=== PATIENT | female | born 1940 | race Caucasian/White ===

== ENCOUNTER 2016-11-28 00:44 | Inpatient (IN) | payer MEDICARE, BC ==
[2016-11-28] MEDS: DILTIAZEM HCL/D5W 125 ML IV PRN ×3 (00:58→23:28)
[2016-11-28 01:48] LABS: ABSOLUTE LYMPHOCYTES (AUTO) 0.7 10^3/uL (0.5-4.7); ABSOLUTE MONOCYTES (AUTO) 0.6 10^3/uL (0.1-1.4); ABSOLUTE NEUT (AUTO) 9.1 10^3/uL (1.7-8.2); BASOPHILS % (AUTO) 0.1 % (0-2); EOSINOPHILS % (AUTO) 0.1 % (0-6); HEMATOCRIT 38.8 % (36.0-47.0); HEMOGLOBIN 12.6 g/dL (12.0-15.5); LYMPHOCYTES % (AUTO) 6.3 % (13-45); MEAN CORPUSCULAR HEMOGLOBIN 27.1 pg (27.0-33.4); MEAN CORPUSCULAR HGB CONC 32.4 g/dL (32.0-36.0); MEAN CORPUSCULAR VOLUME 84 fl (80-97); MONOCYTES % (AUTO) 5.9 % (3-13); RED BLOOD COUNT 4.64 10^6/uL (3.72-5.28); RED CELL DISTRIBUTION WIDTH 17.6 % (11.5-14.0); SEGMENTED NEUTROPHILS % (AUTO) 87.6 % (42-78); WHITE BLOOD COUNT 10.4 10^3/uL (4.0-10.5)
--- NOTE | 2016-11-28 02:00 | ER Document Report ---
ED Cardiac - General Chief Complaint: Chest Pain Stated Complaint: CHEST PAIN Time seen by provider: 02:00 Mode of Arrival: Stretcher Information source: Patient - HPI Patient complains to provider of: Palpitations, Shortness of breath Was the onset of pain: Sudden Is the pain a: New problem Quality of pain: None Associated symptoms: Diaphoresis Exacerbated by: Denies Relieved by: Nothing Similar symptoms previously: No Recently seen / treated by doctor: Yes Notes: Patient is a 76-year-old female presenting to the emergency room via EMS for complaints of rapid heart rate with shortness of breath and diaphoresis, this started all of a sudden, she denies any history of an irregular heartbeat previously, she does report that she was recently admitted at [facility] for upper respiratory infection, she has a history of COPD, EMS reports that her heart rate was in the 160s upon arrival and irregular, consistent with atrial fibrillation, they administered two 10 mg doses of Cardizem and started a Cardizem drip prior to arrival in this emergency room - Related Data Home Medications: Current Home Medications Albuterol Sulfate [Ventolin Hfa] 1 - 2 puff IH Q4 PRN 11/28/16 [History] Amlodipine Besylate 5 mg PO DAILY 11/28/16 [History] Aspirin [Aspirin 81 mg Chewable Tablet] 81 mg PO DAILY 11/28/16 [History] Budesonide/Formoterol Fumarate [Symbicort Hfa 160-4.5 Mcg Inhaler 6 gm] 2 puff IH Q12 11/28/16 [History] Furosemide 20 mg PO ASDIR 11/28/16 [History] Metoprolol Succinate [Toprol Xl] 50 mg PO DAILY 11/28/16 [History] Omeprazole 20 mg PO DAILY 11/28/16 [History] Ondansetron [Zofran Odt 4 mg Tablet] 4 mg PO Q6H PRN 11/28/16 [History] Prednisone 40 mg PO DAILY 11/28/16 [History] Sucralfate [Carafate 1 gm Tablet] 1 gm PO ACHS 11/28/16 [History] Past Medical History - General Information source: Patient - Social History Smoking Status: Former Smoker Family History: Reviewed & Not Pertinent Review of Systems - Review of Systems Constitutional: Diaphoresis EENT: No symptoms reported Cardiovascular: Palpitations, Heart racing Respiratory: See HPI Gastrointestinal: No symptoms reported Genitourinary: No symptoms reported Female Genitourinary: No symptoms reported Musculoskeletal: No symptoms reported Skin: No symptoms reported Hematologic/Lymphatic: No symptoms reported Neurological/Psychological: No symptoms reported -: Yes All other systems reviewed and negative Physical Exam - Vital signs Vitals: Temp Pulse Ox 98.1 F 98 11/28/16 00:58 11/28/16 00:58 Interpretation: Tachycardic - General General appearance: Alert, Other - Frail-appearing In distress: None - HEENT Head: Normocephalic, Atraumatic Eyes: Normal Conjunctiva: Normal Extraocular movements intact: Yes Eyelashes: Normal Pupils: PERRL Mucous membranes: Normal Neck: Normal - Respiratory Respiratory status: No respiratory distress Chest status: Nontender Breath sounds: Normal Chest palpation: Normal - Cardiovascular Rhythm: Irregularly irregular, Tachycardia Murmur: No - Abdominal Inspection: Normal Distension: No distension Bowel sounds: Normal Tenderness: Nontender Organomegaly: No organomegaly - Back Back: Normal, Nontender - Extremities General upper extremity: Normal inspection, Nontender, Normal color, Normal ROM , Normal temperature General lower extremity: Normal inspection, Nontender, Normal color, Normal ROM , Normal temperature. No: Aurora's sign - Neurological Neuro grossly intact: Yes Cognition: Normal Orientation: AAOx4 [place] Coma Scale Eye Opening: Spontaneous Carmen Coma Scale Verbal: Oriented [place] Coma Scale Motor: Obeys Commands [place] Coma Scale Total: 15 Speech: Normal Motor strength normal: LUE, RUE, LLE, RLE Sensory: Normal - Psychological Associated symptoms: Normal affect, Normal mood - Skin Skin Temperature: Warm Skin Moisture: Dry Skin Color: Normal Course - Re-evaluation Re-evalutation: 11/28/16 04:50 Patient resting comfortably, no concerns at present time, she remains in rhythm consistent with atrial fibrillation, heart rate is more controlled but occasionally increases, patient has been discussed with the hospitalist who agrees to admit for further evaluation and treatment - Vital Signs Vital signs: Temp Pulse Resp BP Pulse Ox 98.1 F 18 121/73 97 11/28/16 00:58 11/28/16 03:31 11/28/16 03:31 11/28/16 03:31 - Laboratory Result Diagrams: 11/28/16 01:32 11/28/16 01:32 Laboratory results interpreted by me: 0211/28/16 11/28/16 01:32 01:32 01:32 RDW 17.6 H Seg Neutrophils % 87.6 H Lymphocytes % 6.3 L Absolute Neutrophils 9.1 H Carbon Dioxide 32 H BUN 28 H Est GFR (Non-Af Amer) 59 L Glucose 164 H Creatine Kinase 24 L NT-Pro-B Natriuret Pep 7980 H Total Protein 5.9 L Albumin 3.0 L Urine Protein Urine Glucose (UA) 11/28/16 02:12 RDW Seg Neutrophils % Lymphocytes % Absolute Neutrophils Carbon Dioxide BUN Est GFR (Non-Af Amer) Glucose Creatine Kinase NT-Pro-B Natriuret Pep Total Protein Albumin Urine Protein 100 H Urine Glucose (UA) 50 H - Diagnostic Test Radiology reviewed: Image reviewed, Reports reviewed - EKG Interpretation by Me Rate: Tachycardia Rhythm: A.Fib - Transfer of Care Care transferred to following provider: Dr. Headley Critical Care Note - Critical Care Note Total time excluding time spent on procedures (mins): 60 Comments: Patient arrived in atrial fibrillation, requiring a Cardizem drip for rate control, and admission to the hospitalist service Discharge - Discharge Clinical Impression: New onset atrial fibrillation Condition: Fair Disposition: ADMITTED INPATIENT Admitting Provider: Hospitalist Unit Admitted: [facility]
[2016-11-28 02:12] LABS: ALANINE AMINOTRANSFERASE 35 U/L (9-52); ALKALINE PHOSPHATASE 124 U/L (38-126); ANION GAP 10 (5-19); ASPARTATE AMINO TRANSFERASE 17 U/L (14-36); BILIRUBIN,TOTAL 0.4 mg/dL (0.2-1.3); BLOOD UREA NITROGEN 28 mg/dL (7-20); CALCIUM 8.9 mg/dL (8.4-10.2); CARBON DIOXIDE 32 mmol/L (22-30); CHLORIDE 98 mmol/L (98-107); CREATINE KINASE 24 U/L (30-135); CREATININE RESULT 0.92 mg/dL (0.52-1.25); GLUCOSE 164 mg/dL (75-110); POTASSIUM 3.6 mmol/L (3.6-5.0); SODIUM 139.8 mmol/L (137-145); TOTAL PROTEIN 5.9 g/dL (6.3-8.2)
[2016-11-28 02:22] LABS: CREATINE KINASE MB 1.32 ng/mL (<4.55); TROPONIN I 0.033 ng/mL
[2016-11-28 02:28] LABS: APPEARANCE,URINE CLEAR; BILIRUBIN,URINE NEGATIVE (NEGATIVE); GLUCOSE, URINE 50 mg/dL (NEGATIVE); KETONES,URINE NEGATIVE (NEGATIVE); LEUKOCYTE ESTERASE,URINE NEGATIVE (NEGATIVE); NITRITE,URINE NEGATIVE (NEGATIVE); PROTEIN,URINE 100 mg/dL (NEGATIVE); URINE SPECIFIC GRAVITY 1.017; UROBILINOGEN,URINE NEGATIVE mg/dL (<2.0)
[2016-11-28] MEDS ORDERED: ATORVASTATIN CALCIUM 40 MG TABLET PO SCH (03:30)
[2016-11-28] MEDS ORDERED: IPRATROPIUM BROMIDE 0.02% NEB 0.5 MG/2.5 ML AMPUL NEB SCH (03:30)
[2016-11-28] MEDS: LEVALBUTEROL HCL NEB 1.25 MG/3 ML AMPUL NEB SCH ×3 (04:49→19:42)
[2016-11-28] MEDS: ENOXAPARIN SODIUM INJ 60 MG/0.6 ML DISP.SYRIN SUBCUT SCH ×2 (04:50→21:42)
[2016-11-28] MEDS ORDERED: METOPROLOL TARTRATE PF/INJ 5 MG/5 ML SDV IV PRN ×2 (05:07→06:06)
[2016-11-28] MEDS ORDERED: FLUTICASONE NASAL SPRAY 50 MCG/SPRY 120 SPRAY/16 GM ONE (05:33)
[2016-11-28] MEDS: FLUTICASONE NASAL SPRAY 50 MCG/SPRY 120 SPRAY/16 GM NASL SCH ×2 (05:51→21:44)
[2016-11-28] MEDS: LANSOPRAZOLE 30 MG TAB.RAP.DR PO SCH ×2 (06:07→18:54)
--- NOTE | 2016-11-28 07:44 | PDOC H&P ---
History of Present Illness Admission Date/PCP: 11/28/16 03:27 JAYSON SAPP Patient complains of: Palpitations and shortness of breath History of Present Illness: PRUDENCE RYAN is a 76 year old female with an unclear past medical history as she is a poor historian though states she was recently at [facility] for a heart and lung problem and found to have reduced lung function of 30%, treated with prednisone and antibiotics which she is finished. Records are requested and pending. Over the last 48 hours she's had a productive cough of frothy sputum and frontal sinus congestion with rhinorrhea and postnasal drip. Prompting her to call EMS who finds new A. fib with RVR in the 160s, and has orders for IV Cardizem initiated, she denies chest pain nausea vomiting diaphoresis, she thinks she may have had similar palpitations in the past but are short-lived. Medications recently changed included discontinuation of Coreg and initiation of Lopressor, prednisone taper an unknown antibiotic. Her labs reveal a BNP of 8000, A. fib stabilized at 120 to 130 and referred to the hospitalist for admission. Past Medical History Cardiac Medical History: Reports: Congestive Heart Failure, Hyperlipidema, Hypertension Pulmonary Medical History: Reports: Bronchitis, Chronic Obstructive Pulmonary Disease (COPD) Social History Information Source: Patient, Relative Smoking Status: Former Smoker Frequency of Alcohol Use: None Hx Recreational Drug Use: No Drugs: None - Advance Directive Resuscitation Status: Full Code Family History Family History: Hypertension Parental Family History Reviewed: Yes Children Family History Reviewed: Yes Sibling(s) Family History Reviewed.: Yes Medication/Allergy Home Medications: Albuterol Sulfate [Ventolin Hfa] 1 - 2 puff IH Q4 PRN 11/28/16 Amlodipine Besylate 5 mg PO DAILY 11/28/16 Aspirin [Aspirin 81 mg Chewable Tablet] 81 mg PO DAILY 11/28/16 Budesonide/Formoterol Fumarate [Symbicort Hfa 160-4.5 Mcg Inhaler 6 gm] 2 puff IH Q12 11/28/16 Furosemide 20 mg PO ASDIR 11/28/16 Metoprolol Succinate [Toprol Xl] 50 mg PO DAILY 11/28/16 Omeprazole 20 mg PO DAILY 11/28/16 Ondansetron [Zofran Odt 4 mg Tablet] 4 mg PO Q6H PRN 02/07/17 Prednisone 40 mg PO DAILY 11/28/16 Sucralfate [Carafate 1 gm Tablet] 1 gm PO ACHS 11/28/16 Review of Systems Constitutional: PRESENT: fatigue. ABSENT: chills, fever(s), headache(s), weight gain, weight loss Eyes: ABSENT: visual disturbances Ears: ABSENT: hearing changes Cardiovascular: PRESENT: dyspnea on exertion, palpitations. ABSENT: chest pain , edema, orthropnea Respiratory: PRESENT: cough, dyspnea, sputum, other - Patient admits to both yellow and frothy sputum Gastrointestinal: ABSENT: abdominal pain, constipation, diarrhea, hematemesis, hematochezia, nausea, vomiting Genitourinary: ABSENT: dysuria, hematuria Musculoskeletal: ABSENT: joint swelling Integumentary: ABSENT: rash, wounds Neurological: ABSENT: abnormal gait, abnormal speech, confusion, dizziness, focal weakness, syncope Psychiatric: ABSENT: anxiety, depression, homidical ideation, suicidal ideation Endocrine: ABSENT: cold intolerance, heat intolerance, polydipsia, polyuria Hematologic/Lymphatic: ABSENT: easy bleeding, easy bruising Physical Exam Vital Signs: Temp Pulse Resp BP Pulse Ox 98.1 F 21 H 115/78 97 11/28/16 00:58 11/28/16 06:47 11/28/16 06:47 11/28/16 06:47 General appearance: PRESENT: cooperative, mild distress, thin Head exam: PRESENT: atraumatic, normocephalic Eye exam: PRESENT: conjunctiva pink, EOMI, PERRLA. ABSENT: scleral icterus Ear exam: PRESENT: normal external ear exam Mouth exam: PRESENT: moist, tongue midline Neck exam: ABSENT: carotid bruit, JVD, lymphadenopathy, thyromegaly Respiratory exam: PRESENT: accessory muscle use, crackles, decreased breath sounds, prolonged expiratory phas, symmetrical, tachypnea. ABSENT: chest wall tenderness, rales, rhonchi, wheezes Cardiovascular exam: PRESENT: irregular rhythm. ABSENT: clicks, diastolic murmur, gallop, rubs, systolic murmur Pulses: PRESENT: normal dorsalis pedis pul Vascular exam: PRESENT: normal capillary refill GI/Abdominal exam: PRESENT: normal bowel sounds, soft. ABSENT: distended, guarding, mass, organolmegaly, rebound, tenderness Rectal exam: PRESENT: deferred Extremities exam: PRESENT: full ROM. ABSENT: calf tenderness, clubbing, pedal edema Neurological exam: PRESENT: alert, awake, oriented to person, oriented to place , oriented to time, oriented to situation, CN II-XII grossly intact. ABSENT: motor sensory deficit Psychiatric exam: PRESENT: appropriate affect, normal mood. ABSENT: homicidal ideation, suicidal ideation Skin exam: PRESENT: dry, intact, warm. ABSENT: cyanosis, rash Results Impressions: Chest X-Ray 11/28/16 01:36 IMPRESSION: HEART ENLARGED WITHOUT FAILURE. TRACE BILATERAL PLEURAL EFFUSIONS. Assessment & Plan - Diagnosis (1) New onset atrial fibrillation Is this a current diagnosis for this admission?: YesPlan: Likely secondary to exacerbation of COPD with URI and use of albuterol that said she is greatly improved on IV Cardizem and will admit to a monitored bed evaluate for acute coronary syndrome anticoagulate initiate Xopenex with Atrovent nebulizer, obtain 2-D echo and transition to an oral regiment, cardiac history is unclear records from [facility] are pending. (2) COPD exacerbation Is this a current diagnosis for this admission?: YesPlan: Avoid albuterol, Xopenex and Atrovent nebulizer, Flonase empiric antibiotics continuation of prednisone taper (3) Acute exacerbation of chronic bronchitis Is this a current diagnosis for this admission?: YesPlan: Please see #2 - Time Time Spent: 50 to 70 Minutes
--- NOTE | 2016-11-28 08:07 | EKG REPORT ---
SEVERITY:- ABNORMAL ECG - ATRIAL FIBRILLATION PREMATURE COMPLEXES, VENT PROBABLE LVH WITH SECONDARY REPOL ABNRM BORDERLINE PROLONGED QT INTERVAL : Confirmed by: Paul Alvarado MD 28-Nov-2016 08:07:01
[2016-11-28] MEDS ORDERED: IPRATROPIUM BROMIDE 0.02% NEB 0.5 MG/2.5 ML AMPUL NEB PRN (08:19)
[2016-11-28] MEDS ORDERED: LEVALBUTEROL HCL NEB 1.25 MG/3 ML AMPUL NEB PRN (08:23)
[2016-11-28 08:31] LABS: ANION GAP 9 (5-19); BLOOD UREA NITROGEN 26 mg/dL (7-20); CALCIUM 9.1 mg/dL (8.4-10.2); CARBON DIOXIDE 32 mmol/L (22-30); CHLORIDE 99 mmol/L (98-107); CREATINE KINASE 22 U/L (30-135); CREATININE RESULT 0.86 mg/dL (0.52-1.25); Direct HDL 58 mg/dL (>40); GLUCOSE 108 mg/dL (75-110); POTASSIUM 3.6 mmol/L (3.6-5.0); TRIGLYCERIDES 104 mg/dL (<150)
[2016-11-28 08:41] LABS: DIRECT LDL 46 mg/dL (<100)
[2016-11-28 08:42] LABS: CREATINE KINASE MB 1.54 ng/mL (<4.55)
[2016-11-28 08:52] LABS: TROPONIN I 0.051 ng/mL
[2016-11-28] MEDS ORDERED: METOPROLOL SUCCINATE 50 MG TAB.SR.24H PO SCH (10:00)
[2016-11-28] MEDS ORDERED: ASPIRIN 81 MG TABLET, CHEWABLE PO SCH (10:00)
[2016-11-28] MEDS: PREDNISONE 20 MG TABLET PO SCH (11:07)
[2016-11-28] MEDS: DOCUSATE SODIUM 100 MG CAPSULE PO SCH ×2 (11:08→18:54)
[2016-11-28] MEDS: SUCRALFATE 1 GM TABLET PO SCH ×4 (11:08→21:41)
[2016-11-28 16:40] LABS: CREATINE KINASE MB 1.11 ng/mL (<4.55); TROPONIN I 0.038 ng/mL
[2016-11-28] MEDS ORDERED: ONDANSETRON 4 MG TAB.RAPDIS PO PRN (16:49)
--- NOTE | 2016-11-28 16:51 | PDOC PROGRESS REPORT ---
Subjective Progress Note for:: 11/28/16 Subjective:: The patient was seen earlier today on rounds. Patient states that her heart palpitations have resolved. When I entered the room the patient's heart rate was found to be between 1:30 and 100 The patient denies any nausea, vomiting, diarrhea, shortness of breath, dizziness, chest pain, heart palpitations, fevers , or chills. The patient has remained afebrile. Blood pressures have been in a good range. When prompted the patient voices no other concerns at this time. Review of systems: The rest of the review of systems is negative. Physical Exam Vital Signs: Temp Pulse Resp BP Pulse Ox 98.1 F 112 H 23 H 124/83 95 11/28/16 13:53 11/28/16 13:53 11/28/16 13:53 11/28/16 13:53 11/28/16 13:53 General appearance: PRESENT: no acute distress, well-developed, well-nourished Head exam: PRESENT: atraumatic, normocephalic Eye exam: PRESENT: conjunctiva pink, EOMI, PERRLA. ABSENT: scleral icterus Ear exam: PRESENT: normal external ear exam Mouth exam: PRESENT: moist, tongue midline Neck exam: ABSENT: carotid bruit, JVD, lymphadenopathy, thyromegaly Respiratory exam: PRESENT: decreased breath sounds. ABSENT: rales, rhonchi, wheezes Cardiovascular exam: PRESENT: irregular rhythm. ABSENT: diastolic murmur, rubs , systolic murmur Pulses: PRESENT: normal dorsalis pedis pul Vascular exam: PRESENT: normal capillary refill GI/Abdominal exam: PRESENT: normal bowel sounds, soft. ABSENT: distended, guarding, mass, organolmegaly, rebound, tenderness Rectal exam: PRESENT: deferred Extremities exam: PRESENT: full ROM. ABSENT: calf tenderness, clubbing, pedal edema Neurological exam: PRESENT: alert, awake, oriented to person, oriented to place , oriented to time, oriented to situation, CN II-XII grossly intact. ABSENT: motor sensory deficit Psychiatric exam: PRESENT: appropriate affect, normal mood. ABSENT: homicidal ideation, suicidal ideation Skin exam: PRESENT: dry, intact, warm. ABSENT: cyanosis, rash Results Laboratory Results: 11/28/16 08:03 11/28/16 08:03 Sodium 140.0 Potassium 3.6 Chloride 99 Carbon Dioxide 32 H Anion Gap 9 BUN 26 H Creatinine 0.86 Est GFR ( Amer) > 60 Est GFR (Non-Af Amer) > 60 Glucose 108 Calcium 9.1 Triglycerides 104 Cholesterol 121.40 LDL Cholesterol Direct 46 VLDL Cholesterol 21.0 HDL Cholesterol 58 11/28/16 11/28/16 11/28/16 08:03 08:03 14:40 Creatine Kinase 22 L 30 CK-MB (CK-2) 1.54 Troponin I 0.051 11/28/16 15:45 Creatine Kinase CK-MB (CK-2) 1.11 Troponin I 0.038 Impressions: Chest X-Ray 11/28/16 01:36 IMPRESSION: HEART ENLARGED WITHOUT FAILURE. TRACE BILATERAL PLEURAL EFFUSIONS. Assessment & Plan - Diagnosis (1) Atrial fibrillation with rapid ventricular response Is this a current diagnosis for this admission?: YesPlan: Resume Cardizem drip. According to the patient she has had A. fib in the past. Will resume home beta chad. Continue to cover with Lovenox. (2) COPD exacerbation Is this a current diagnosis for this admission?: YesPlan: Continue BiPAP as needed. Will continue the patient's home medications. (3) Acute respiratory failure Qualifiers: Respiratory failure complication: hypoxia Qualified Code(s): J96.01 - Acute respiratory failure with hypoxia Is this a current diagnosis for this admission?: YesPlan: Secondary to the above. Will continue supplemental O2 and follow. - Time Time Spent with patient: on this visit including assessment, plan, physical examination, family meeting, and specialty collaboration, and patient education is 35 minutes. Time Spent with patient: 35 or more minutes Medications reviewed and adjusted accordingly: Yes Disposition: The patient is a full code. Pending patient's symptomatology and diagnostic findings will reevaluate in the a.m.
[2016-11-28] MEDS: METOPROLOL SUCCINATE 50 MG TAB.SR.24H PO SCH (21:41)
[2016-11-28] MEDS: BUDESONIDE/FORMOTEROL 160-4.5 MCG 60 PUFF/6 GM MDI IH SCH (21:42)
[2016-11-28] MEDS ORDERED: SUCRALFATE 1 GM TABLET PO SCH (22:00)
[2016-11-28 22:35] LABS: CREATINE KINASE MB 1.09 ng/mL (<4.55); TROPONIN I 0.03 ng/mL
[2016-11-29] MEDS: LEVALBUTEROL HCL NEB 1.25 MG/3 ML AMPUL NEB SCH ×4 (02:12→19:48)
[2016-11-29 04:52] LABS: HEMATOCRIT 37.3 % (36.0-47.0); HEMOGLOBIN 11.9 g/dL (12.0-15.5); HGB HCT DIFFERENCE -1.6; MEAN CORPUSCULAR HEMOGLOBIN 26.5 pg (27.0-33.4); MEAN CORPUSCULAR VOLUME 83 fl (80-97); RED BLOOD COUNT 4.51 10^6/uL (3.72-5.28); RED CELL DISTRIBUTION WIDTH 17.5 % (11.5-14.0); WHITE BLOOD COUNT 11.8 10^3/uL (4.0-10.5)
[2016-11-29 05:10] LABS: ANION GAP 9 (5-19); BLOOD UREA NITROGEN 29 mg/dL (7-20); CALCIUM 9.3 mg/dL (8.4-10.2); CARBON DIOXIDE 28 mmol/L (22-30); CHLORIDE 97 mmol/L (98-107); CREATININE RESULT 0.93 mg/dL (0.52-1.25); GLUCOSE 123 mg/dL (75-110); MAGNESIUM 1.8 mg/dL (1.6-2.3); POTASSIUM 4.2 mmol/L (3.6-5.0)
[2016-11-29] MEDS: LANSOPRAZOLE 30 MG TAB.RAP.DR PO SCH ×2 (05:12→17:06)
[2016-11-29] MEDS: DILTIAZEM HCL/D5W 125 ML IV PRN (07:12)
--- NOTE | 2016-11-29 08:06 | EKG REPORT ---
SEVERITY:- ABNORMAL ECG - ATRIAL FIBRILLATION VENTRICULAR PREMATURE COMPLEX MINIMAL ST DEPRESSION, INFERIOR LEADS : Confirmed by: Paul Alvarado MD 29-Nov-2016 08:05:58
[2016-11-29] MEDS ORDERED: MAGNESIUM SULFATE/D5W 1 GM/100 ML RTUPB IV ONE (09:28)
[2016-11-29] MEDS ORDERED: DILTIAZEM HCL/D5W 125 ML IV PRN (09:31)
[2016-11-29] MEDS: ENOXAPARIN SODIUM INJ 60 MG/0.6 ML DISP.SYRIN SUBCUT SCH (10:06)
[2016-11-29] MEDS: DOCUSATE SODIUM 100 MG CAPSULE PO SCH ×2 (10:07→17:06)
[2016-11-29] MEDS: SUCRALFATE 1 GM TABLET PO SCH ×4 (10:07→21:56)
[2016-11-29] MEDS: METOPROLOL SUCCINATE 50 MG TAB.SR.24H PO SCH ×2 (10:07→21:56)
[2016-11-29] MEDS: ASPIRIN 81 MG TABLET, ENT COATED PO SCH (10:07)
[2016-11-29] MEDS: PREDNISONE 20 MG TABLET PO SCH (10:07)
[2016-11-29] MEDS: FLUTICASONE NASAL SPRAY 50 MCG/SPRY 120 SPRAY/16 GM NASL SCH ×2 (10:09→21:57)
[2016-11-29] MEDS: BUDESONIDE/FORMOTEROL 160-4.5 MCG 60 PUFF/6 GM MDI IH SCH ×2 (10:10→21:57)
[2016-11-29] MEDS ORDERED: METOPROLOL TARTRATE PF/INJ 5 MG/5 ML SDV IV ONE (10:30)
[2016-11-29] MEDS: DILTIAZEM HCL 60 MG TABLET PO SCH ×2 (12:00→17:04)
--- NOTE | 2016-11-29 12:48 | PDOC PROGRESS REPORT ---
Subjective Progress Note for:: 11/29/16 Subjective:: The patient is a 76 yr old female seen on morning rounds. She denies any significant shortness of breath, or dyspnea. She does have productive cough. She has a history of COPD on home oxygen. She continues to be in atrial fibrillation but is now rate controlled. She denies any nausea, vomiting or abdominal pain. She voices no other complaints at this time. Physical Exam Vital Signs: Temp Pulse Resp BP Pulse Ox 98.4 F 78 16 127/80 H 96 11/29/16 11:56 11/29/16 11:56 11/29/16 11:56 11/29/16 11:56 11/29/16 11:56 Intake & Output 11/28/16 11/29/16 11/30/16 06:59 06:59 06:59 Intake Total 1146 Output Total 450 Balance 696 Weight 62.7 kg General appearance: PRESENT: no acute distress, well-developed, well-nourished Head exam: PRESENT: atraumatic, normocephalic Eye exam: PRESENT: conjunctiva pink, EOMI, PERRLA. ABSENT: scleral icterus Ear exam: PRESENT: normal external ear exam Mouth exam: PRESENT: moist, tongue midline Neck exam: ABSENT: carotid bruit, JVD, lymphadenopathy, thyromegaly Respiratory exam: PRESENT: clear to auscultation leander. ABSENT: rales, rhonchi, wheezes Cardiovascular exam: PRESENT: RRR, +S1, +S2 Pulses: PRESENT: normal dorsalis pedis pul Vascular exam: PRESENT: normal capillary refill GI/Abdominal exam: PRESENT: normal bowel sounds, soft. ABSENT: distended, guarding, mass, organolmegaly, rebound, tenderness Rectal exam: PRESENT: deferred Extremities exam: PRESENT: full ROM. ABSENT: calf tenderness, clubbing, pedal edema Neurological exam: PRESENT: alert, awake, oriented to person, oriented to place , oriented to time, oriented to situation, CN II-XII grossly intact. ABSENT: motor sensory deficit Psychiatric exam: PRESENT: appropriate affect, normal mood. ABSENT: homicidal ideation, suicidal ideation Skin exam: PRESENT: dry, intact, warm. ABSENT: cyanosis, rash Results Laboratory Results: 11/29/16 04:28 11/29/16 04:28 11/29/16 11/29/16 11/29/16 04:28 04:28 10:30 WBC 11.8 H RBC 4.51 Hgb 11.9 L Hct 37.3 MCV 83 MCH 26.5 L MCHC 32.0 RDW 17.5 H Plt Count 173 Sodium 134.0 L Potassium 4.2 Chloride 97 L Carbon Dioxide 28 Anion Gap 9 BUN 29 H Creatinine 0.93 Est GFR ( Amer) > 60 Est GFR (Non-Af Amer) 58 L Glucose 123 H Calcium 9.3 Magnesium 1.8 Stool Occult Blood NEGATIVE 11/28/16 11/28/16 11/28/16 08:03 08:03 14:40 Creatine Kinase 22 L 30 CK-MB (CK-2) 1.54 Troponin I 0.051 11/28/16 11/28/16 11/28/16 15:45 21:45 21:45 Creatine Kinase < 20 L CK-MB (CK-2) 1.11 1.09 Troponin I 0.038 0.030 Impressions: Chest X-Ray 11/28/16 01:36 IMPRESSION: HEART ENLARGED WITHOUT FAILURE. TRACE BILATERAL PLEURAL EFFUSIONS. Assessment & Plan - Diagnosis (1) Atrial fibrillation with rapid ventricular response Is this a current diagnosis for this admission?: YesPlan: Presently rate controlled on cardiazem, and metoprolol. Will d/c lovenox and start Eliquis (2) COPD exacerbation Is this a current diagnosis for this admission?: YesPlan: Continue nebulizers and prednisone therapy. Now that heart rate is controlled breathing has improved (3) Acute respiratory failure Qualifiers: Respiratory failure complication: hypoxia Qualified Code(s): J96.01 - Acute respiratory failure with hypoxia Is this a current diagnosis for this admission?: YesPlan: Back to baseline - Time Time Spent with patient: 25-34 minutes Critical Time spent with patient: 15-24 minutes Medications reviewed and adjusted accordingly: Yes Anticipated discharge: Home
[2016-11-29] MEDS: APIXABAN 5 MG TABLET PO SCH (17:10)
[2016-11-29 18:12] LABS: APPEARANCE,URINE SLIGHTLY-CLOUDY; BILIRUBIN,URINE NEGATIVE (NEGATIVE); GLUCOSE, URINE NEGATIVE (NEGATIVE); KETONES,URINE NEGATIVE (NEGATIVE); LEUKOCYTE ESTERASE,URINE LARGE (NEGATIVE); NITRITE,URINE NEGATIVE (NEGATIVE); PROTEIN,URINE 30 mg/dL (NEGATIVE); URINE SPECIFIC GRAVITY 1.015; UROBILINOGEN,URINE NEGATIVE mg/dL (<2.0)
--- NOTE | 2016-11-29 19:54 | PDOC CONSULTATION ---
Consultation Consult Date: 11/29/16 Attending physician:: JESSICA LOVE Consult reason:: Atrial fibrillation History of Present Illness Admission Date/PCP: 11/28/16 03:27 ANTONINA WHEELER Patient complains of: Palpitations and irregular heartbeat History of Present Illness: PRUDENCE RYAN is a 76 year old female with an unclear past medical history as she is a poor historian though states she was recently at [facility] for a heart and lung problem and found to have reduced lung function of 30%, treated with prednisone and antibiotics which she is finished. Records are requested and pending. Over the last 48 hours she's had a productive cough of frothy sputum and frontal sinus congestion with rhinorrhea and postnasal drip. Prompting her to call EMS who finds new A. fib with RVR in the 160s, and has orders for IV Cardizem initiated, she denies chest pain nausea vomiting diaphoresis, she thinks she may have had similar palpitations in the past but are short-lived. Medications recently changed included discontinuation of Coreg and initiation of Lopressor, prednisone taper an unknown antibiotic. Her labs reveal a BNP of 8000, A. fib stabilized at 120 to 130 and referred to the hospitalist for admission. This history was confirmed by me. This was also supplemented. On questioning patient has noted shortness of breath at rest and on mild exertion. She denied any chest pain. She denied any history of syncope or near syncope. Patient denied any prior history of myocardial infarction, angina, congestive heart failure. Past Medical History Cardiac Medical History: Reports: Hyperlipidema, Hypertension Pulmonary Medical History: Reports: Bronchitis, Chronic Obstructive Pulmonary Disease (COPD) Psychiatric Medical History: Denies: Depression Past Surgical History Past Surgical History: Reports: Other - None significant reported by the patient Social History Information Source: Patient Smoking Status: Former Smoker Number of Years Smokin Frequency of Alcohol Use: None Hx Recreational Drug Use: No Drugs: None Hx Prescription Drug Abuse: No - Advance Directive Resuscitation Status: Full Code Family History Family History: Hypertension Parental Family History Reviewed: Yes Children Family History Reviewed: Yes Sibling(s) Family History Reviewed.: Yes - Negative for premature coronary artery disease or sudden cardiac in the family amongst first degree relatives. Medication/Allergy Home Medications: Albuterol Sulfate [Albuterol Sulfate 2.5mg/3 mL] 1 vial NEB Q6 11/28/16 Albuterol Sulfate [Ventolin Hfa] 2 puff IH Q6 PRN 11/28/16 Amlodipine Besylate [Norvasc 5 mg Tablet] 5 mg PO DAILY 11/28/16 Aspirin [Aspirin EC] 81 mg PO DAILY 11/28/16 Budesonide/Formoterol Fumarate [Symbicort HFA 160-4.5 mcg Inhaler 6 gm] 2 puff IH BID 11/28/16 Cyanocobalamin (Vitamin B-12) [Vitamin B-12] 1 ml IM ASDIR PRN 11/28/16 Furosemide [Lasix 20 mg Tablet] 20 mg PO MOWEFR@1000 11/28/16 Ipratropium [place] 1 packet NEB TID 11/28/16 Metoprolol Succinate [Toprol Xl 50 mg Tab.sr] 50 mg PO BID 11/28/16 Omeprazole 20 mg PO DAILY 11/28/16 Ondansetron [Zofran Odt 4 mg Tablet] 4 mg PO Q6HP PRN 11/28/16 Prednisone [Deltasone 20 mg Tablet] 20 mg PO ASDIR PRN 11/28/16 Sucralfate [Carafate 1 gm Tablet] 1 tab PO ACHS 11/28/16 Triamcinolone Acetonide [Aristocort 0.1% Cream] 1 gm TOP DAILY 11/28/16 Allergies/Adverse Reactions: levofloxacin [From Levaquin] Allergy (Verified 11/29/16 16:47) scopolamine Adverse Reaction (Verified 11/29/16 16:47) Confusion Ubrpnhl-Jcc-Zzf Reductase Inhibitor Adverse Reaction (Verified 11/29/16 16:47) sulfamethoxazole [From Bactrim] Adverse Reaction (Verified 11/29/16 16:47) telmisartan [From Micardis] Adverse Reaction (Verified 11/29/16 16:47) trimethoprim [From Bactrim] Adverse Reaction (Verified 11/29/16 16:47) Review of Systems Review of Systems: Please see history of present illness and past medical history as wall. Constitutional: No fever or chills reported. Head : No recent chronic headaches, recent head injury. Eyes: No recent eye pain, diplopia, redness, discharge, acute visual changes. Ears: No recent chronic ear pain, acute hearing loss, ear discharge. Oral cavity: No recent ulcerations, bleeding, oral cavity discomfort. Neck: No recent acute neck pain reported. Hematologic: No recent easy bruising or bleeding or hematologic malignancy reported. Lymphatic: No recent lymphatic malignancy, chronic lymphadenopathy reported yet Cardiovascular system review: See history of present illness. Respiratory system review: Noted recent cough with sputum production, hemoptysis , blood clots in the lungs reported. Mild Shortness of breath on exertion Gastrointestinal system review: Negative for any recent acute or chronic abdominal pain, hematemesis, melena, recent change in bowel habits. Genitourinary system review: No recent acute or chronic hematuria, flank pain, UTI etc. reported. Skin system review: Negative for any recent abnormal bruising, no rash, no pruritus reported. Neurologic: No prior history of strokes, mini strokes, seizure disorder. Psychologic: No history of major psychosis or depression reported. Musculoskeletal: Minor aches and pains reported. No acute joint swelling reported. Endocrine: No recent polyuria, polydipsia, recent heat or cold intolerance. Physical Exam Vital Signs: Temp Pulse Resp BP Pulse Ox 98.4 F 78 16 127/80 H 96 11/29/16 11:56 11/29/16 11:56 11/29/16 11:56 11/29/16 11:56 11/29/16 11:56 Intake & Output 11/28/16 11/29/16 11/30/16 06:59 06:59 06:59 Intake Total 1146 Output Total 450 Balance 696 Weight 62.7 kg Exam: GENERAL: well-nourished and in no acute distress. Alert and oriented x3 HEAD: Atraumatic, normocephalic. EYES: Pupils equal round and reactive to light, extraocular movements intact, sclera anicteric, conjunctiva are normal. ENT: TMs normal, nares patent, oropharynx clear without exudates. Moist mucous membranes. No oral ulcerations or bleeding gums noted NECK: supple without lymphadenopathy. Trachea is central. No cervical or axillary lymphadenopathy noted. Carotids are 2+, JVD WNL LUNGS: Respiration seems nonlabored, no significant accessory muscle action noted. Bibasal a fine crackles and few bilateral wheezes rales or rhonchi noted. No significant dullness noted on percussion. CHEST: Palpation of the chest wall shows no significant chest wall tenderness or abnormalities. HEART: [place] [employer], No PSH, 1/6 KAYCEE aortic area, 1/6 alvarez systolic murmur mitral area, no rubs, no gallops. ABDOMEN: Soft, no significant tenderness appreciated, normoactive bowel sounds. No guarding, no rebound. No rigidity noted . No masses appreciated. EXTREMITIES: Pedal pulses are 1-2+, no calf tenderness noted. No clubbing or cyanosis.trace to 1+ pedal edema noted NEUROLOGICAL: Focused neurological exam showed no significant neurologic deficit. Normal speech, no focal weakness appreciated. PSYCH: Normal mood, normal affect. Judgment and insight within normal limits. SKIN: No significant ecchymosis, rash, ulcerations or signs of pruritus noted. MUSCULOSKELETAL EXAM: No significant joint swelling noted. Results Laboratory Results: 11/29/16 04:28 11/29/16 04:28 11/29/16 11/29/16 11/29/16 04:28 04:28 10:30 WBC 11.8 H RBC 4.51 Hgb 11.9 L Hct 37.3 MCV 83 MCH 26.5 L MCHC 32.0 RDW 17.5 H Plt Count 173 Sodium 134.0 L Potassium 4.2 Chloride 97 L Carbon Dioxide 28 Anion Gap 9 BUN 29 H Creatinine 0.93 Est GFR ( Amer) > 60 Est GFR (Non-Af Amer) 58 L Glucose 123 H Calcium 9.3 Magnesium 1.8 Stool Occult Blood NEGATIVE 11/28/16 11/28/16 11/28/16 08:03 08:03 14:40 Creatine Kinase 22 L 30 CK-MB (CK-2) 1.54 Troponin I 0.051 11/28/16 11/28/16 11/28/16 15:45 21:45 21:45 Creatine Kinase < 20 L CK-MB (CK-2) 1.11 1.09 Troponin I 0.038 0.030 EKG Comments: Atrial fibrillation with controlled ventricular response, nonspecific ST segment changes and occasional VPCs noted Impressions: Chest X-Ray 11/28/16 01:36 IMPRESSION: HEART ENLARGED WITHOUT FAILURE. TRACE BILATERAL PLEURAL EFFUSIONS. Assessment & Plan - Diagnosis (1) Atrial fibrillation with rapid ventricular response Is this a current diagnosis for this admission?: Yes (2) COPD exacerbation Is this a current diagnosis for this admission?: Yes (3) Congestive heart failure Qualifiers: Congestive heart failure type: unspecified congestive heart failure type Congestive heart failure chronicity: acute on chronic Qualified Code(s ): I50.9 - Heart failure, unspecified Is this a current diagnosis for this admission?: Yes (4) Acute and chronic respiratory failure Qualifiers: Respiratory failure complication: unspecified whether with hypoxia or hypercapnia Qualified Code(s): J96.20 - Acute and chronic respiratory failure, unspecified whether with hypoxia or hypercapnia Is this a current diagnosis for this admission?: Yes - Notes Notes: Atrial fibrillation: Unspecified possibly chronic but could well be new onset. Patient does describe history of intermittent palpitations. At this point agree with rate control with Cardizem. Would recommend chronic anticoagulation , ELIQUIS is started but other options exist. Patient definitely does not want chronic Coumadin therapy. Do not see much contraindication to chronic anticoagulation. Consideration can be given towards cardioversion after one month of adequate anticoagulation. COPD exacerbation: Patient noted to have COPD. Currently worse. Most likely precipitated by recent respiratory tract infection. Could have been precipitated by atrial fibrillation but could also because of atrial fibrillation. Agree with bronchodilator and antibiotic therapy. Use steroids as needed. Congestive heart failure: Patient has shortness of breath. She has elevated BNP level. Patient has history of chronic shortness of breath. Feel that patient most likely has acute on chronic CHF. CHF etiology most likely secondary to right heart failure but could well be diastolic dysfunction being aggravated by atrial fibrillation and volume overload. At this point recommend diuretic therapy, 2-D echocardiogram, management of COPD with exacerbation. Respiratory failure: Acute on chronic. Patient has home oxygen therapy. Continue with it. - Time Time Spent: 30 to 50 Minutes - CODE STATUS was discussed, patient remains full code. Surrogate decision-maker patient's sister. Multiple medical problems were addressed.More than 50% of the time spent coordinating care, discussing management plans with involved caregivers. Management plans discussed with involved personnels. Medical decision making was of moderate complexity.
[2016-11-30] MEDS: DILTIAZEM HCL 60 MG TABLET PO SCH ×2 (00:25→05:20)
[2016-11-30] MEDS: LEVALBUTEROL HCL NEB 1.25 MG/3 ML AMPUL NEB SCH ×4 (01:53→19:44)
[2016-11-30] MEDS: LANSOPRAZOLE 30 MG TAB.RAP.DR PO SCH ×2 (05:20→17:27)
[2016-11-30 05:35] LABS: ANION GAP 9 (5-19); BLOOD UREA NITROGEN 31 mg/dL (7-20); CALCIUM 8.7 mg/dL (8.4-10.2); CARBON DIOXIDE 26 mmol/L (22-30); CHLORIDE 95 mmol/L (98-107); CREATININE RESULT 0.98 mg/dL (0.52-1.25); GLUCOSE 109 mg/dL (75-110); POTASSIUM 4.1 mmol/L (3.6-5.0); SODIUM 129.9 mmol/L (137-145)
[2016-11-30] MEDS: SUCRALFATE 1 GM TABLET PO SCH ×4 (08:26→21:36)
--- NOTE | 2016-11-30 08:28 | EKG REPORT ---
SEVERITY:- ABNORMAL ECG - ATRIAL FIBRILLATION VENTRICULAR PREMATURE COMPLEX BORDERLINE R WAVE PROGRESSION, ANTERIOR LEADS BORDERLINE PROLONGED QT INTERVAL : Confirmed by: Paul Alvarado MD 30-Nov-2016 08:27:36
[2016-11-30] MEDS: DOCUSATE SODIUM 100 MG CAPSULE PO SCH ×2 (09:49→17:27)
[2016-11-30] MEDS: METOPROLOL SUCCINATE 50 MG TAB.SR.24H PO SCH ×2 (09:49→21:36)
[2016-11-30] MEDS: ASPIRIN 81 MG TABLET, ENT COATED PO SCH (09:49)
[2016-11-30] MEDS: FLUTICASONE NASAL SPRAY 50 MCG/SPRY 120 SPRAY/16 GM NASL SCH ×2 (09:50→21:36)
[2016-11-30] MEDS: PREDNISONE 20 MG TABLET PO SCH (09:50)
[2016-11-30] MEDS: APIXABAN 5 MG TABLET PO SCH ×2 (09:50→17:27)
[2016-11-30] MEDS: BUDESONIDE/FORMOTEROL 160-4.5 MCG 60 PUFF/6 GM MDI IH SCH ×2 (09:50→21:36)
[2016-11-30] MEDS ORDERED: DILTIAZEM HCL 180 MG CAPSULE.CR PO ONE (10:47)
--- NOTE | 2016-11-30 13:00 | PDOC PROGRESS REPORT ---
Subjective Progress Note for:: 11/30/16 Subjective:: The patient was seen earlier today on rounds. Patient states that her heart palpitations have resolved. The patient denies any nausea, vomiting, diarrhea, shortness of breath, dizziness, chest pain, heart palpitations, fevers, or chills. The patient has remained afebrile. Blood pressures have been in a good range. When prompted the patient voices no other concerns at this time. Review of systems: The rest of the review of systems is negative. Physical Exam Vital Signs: Temp Pulse Resp BP Pulse Ox 97.9 F 38 L 19 146/64 H 95 11/30/16 11:23 11/30/16 11:23 11/30/16 11:23 11/30/16 11:23 11/30/16 11:23 Intake & Output 11/28/16 11/29/16 11/30/16 23:59 23:59 23:59 Intake Total 297 1954 1103 Output Total 0 850 2400 Balance 297 1104 -1297 Weight 62.7 kg 61.1 kg General appearance: PRESENT: no acute distress, cooperative, well-developed, well-nourished Head exam: PRESENT: atraumatic, normocephalic Eye exam: PRESENT: conjunctiva pink, EOMI, PERRLA. ABSENT: scleral icterus Ear exam: PRESENT: normal external ear exam Mouth exam: PRESENT: moist, tongue midline Neck exam: ABSENT: carotid bruit, JVD, lymphadenopathy, thyromegaly Respiratory exam: PRESENT: clear to auscultation [place]. ABSENT: rales, rhonchi, wheezes Cardiovascular exam: PRESENT: RRR. ABSENT: diastolic murmur, rubs, systolic murmur Pulses: PRESENT: normal dorsalis pedis pul Vascular exam: PRESENT: normal capillary refill GI/Abdominal exam: PRESENT: normal bowel sounds, soft. ABSENT: distended, guarding, mass, organolmegaly, rebound, tenderness Rectal exam: PRESENT: deferred Extremities exam: PRESENT: full ROM. ABSENT: calf tenderness, clubbing, pedal edema Neurological exam: PRESENT: alert, awake, oriented to person, oriented to place , oriented to time, oriented to situation, CN II-XII grossly intact. ABSENT: motor sensory deficit Psychiatric exam: PRESENT: appropriate affect, normal mood. ABSENT: homicidal ideation, suicidal ideation Skin exam: PRESENT: dry, intact, warm. ABSENT: cyanosis, rash Results Laboratory Results: 11/29/16 04:28 11/30/16 04:22 11/29/16 11/30/16 17:15 04:22 Sodium 129.9 L Potassium 4.1 Chloride 95 L Carbon Dioxide 26 Anion Gap 9 BUN 31 H Creatinine 0.98 Est GFR ( Amer) > 60 Est GFR (Non-Af Amer) 55 L Glucose 109 Calcium 8.7 Urine Color YELLOW Urine Appearance SLIGHTLY-CLOUDY Urine pH 5.0 Ur Specific [place] 1.015 Urine Protein 30 H Urine Glucose (UA) NEGATIVE Urine Ketones NEGATIVE Urine Blood SMALL H Urine Nitrite NEGATIVE Ur Leukocyte Esterase LARGE H Urine WBC (Auto) 15 Urine RBC (Auto) 1 11/28/16 11/28/16 11/28/16 08:03 08:03 14:40 Creatine Kinase 22 L 30 CK-MB (CK-2) 1.54 Troponin I 0.051 11/28/16 11/28/16 11/28/16 15:45 21:45 21:45 Creatine Kinase < 20 L CK-MB (CK-2) 1.11 1.09 Troponin I 0.038 0.030 Impressions: Chest X-Ray 11/28/16 01:36 IMPRESSION: HEART ENLARGED WITHOUT FAILURE. TRACE BILATERAL PLEURAL EFFUSIONS. Assessment & Plan - Diagnosis (1) Atrial fibrillation with rapid ventricular response Is this a current diagnosis for this admission?: YesPlan: Will physician a long-acting Cardizem. Will maximize beta chad therapy as well. (2) COPD exacerbation Is this a current diagnosis for this admission?: YesPlan: Will continue current medications the patient is now on room air. (3) Acute and chronic respiratory failure Qualifiers: Respiratory failure complication: unspecified whether with hypoxia or hypercapnia Qualified Code(s): J96.20 - Acute and chronic respiratory failure, unspecified whether with hypoxia or hypercapnia Is this a current diagnosis for this admission?: YesPlan: Overall this is much improved the patient does wear O2 chronically at home. - Time Time Spent with patient: 25-34 minutes Medications reviewed and adjusted accordingly: Yes Anticipated discharge: Home Within: within 24 hours, within 48 hours
--- NOTE | 2016-11-30 13:11 | PDOC PROGRESS REPORT ---
Subjective Progress Note for:: 11/30/16 Subjective:: Patient seems to be doing better with gradual improvement. Pt is denying any chest arm or neck discomfort. Patient denying any PND, orthopnea. Patient denied any sustained palpitations, dizziness, syncope, near syncope. Patient denying any fever chills. Patient denying any other significant discomfort. Patient is maintaining sinus rhythm, noted on cardiac monitoring this morning. Frequent APCs however are noted. Review of systems: Rest review of systems negative. Medications: Medications have been reviewed. Physical Exam Vital Signs: Temp Pulse Resp BP Pulse Ox 97.9 F 38 L 19 146/64 H 95 11/30/16 11:23 11/30/16 11:23 11/30/16 11:23 11/30/16 11:23 11/30/16 11:23 Intake & Output 11/29/16 11/30/16 12/01/16 06:59 06:59 06:59 Intake Total 1146 2090 118 Output Total 450 1500 1300 Balance 696 590 -1182 Weight 62.7 kg 61.1 kg Exam: GENERAL: well-nourished and in no acute distress. Alert and oriented x3 HEAD: Atraumatic, normocephalic. EYES: Pupils equal round and reactive to light, extraocular movements intact, sclera anicteric, conjunctiva are normal. ENT: TMs normal, nares patent, oropharynx clear without exudates. Moist mucous membranes. No oral ulcerations or bleeding gums noted NECK: supple without lymphadenopathy. Trachea is central. No cervical or axillary lymphadenopathy noted. Carotids are 2+, JVD WNL LUNGS: Respiration seems nonlabored, no significant accessory muscle action noted. Few bibasilar wheezes rales or rhonchi. No significant dullness noted on percussion. CHEST: Palpation of the chest wall shows no significant chest wall tenderness or abnormalities. 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 ABDOMEN: Soft, no significant tenderness appreciated, normoactive bowel sounds. No guarding, no rebound. No rigidity noted . No masses appreciated. EXTREMITIES: Pedal pulses are 1-2+, no calf tenderness noted. No clubbing or cyanosis.trace to 1+ pedal edema noted NEUROLOGICAL: Focused neurological exam showed no significant neurologic deficit. Normal speech, no focal weakness appreciated. PSYCH: Normal mood, normal affect. Judgment and insight within normal limits. SKIN: No significant ecchymosis, rash, ulcerations or signs of pruritus noted. MUSCULOSKELETAL EXAM: No significant joint swelling noted. Results Laboratory Results: 11/29/16 04:28 11/30/16 04:22 11/29/16 11/30/16 17:15 04:22 Sodium 129.9 L Potassium 4.1 Chloride 95 L Carbon Dioxide 26 Anion Gap 9 BUN 31 H Creatinine 0.98 Est GFR ( Amer) > 60 Est GFR (Non-Af Amer) 55 L Glucose 109 Calcium 8.7 Urine Color YELLOW Urine Appearance SLIGHTLY-CLOUDY Urine pH 5.0 Ur Specific [place] 1.015 Urine Protein 30 H Urine Glucose (UA) NEGATIVE Urine Ketones NEGATIVE Urine Blood SMALL H Urine Nitrite NEGATIVE Ur Leukocyte Esterase LARGE H Urine WBC (Auto) 15 Urine RBC (Auto) 1 11/28/16 11/28/16 11/28/16 08:03 08:03 14:40 Creatine Kinase 22 L 30 CK-MB (CK-2) 1.54 Troponin I 0.051 11/28/16 11/28/16 11/28/16 15:45 21:45 21:45 Creatine Kinase < 20 L CK-MB (CK-2) 1.11 1.09 Troponin I 0.038 0.030 Impressions: Chest X-Ray 11/28/16 01:36 IMPRESSION: HEART ENLARGED WITHOUT FAILURE. TRACE BILATERAL PLEURAL EFFUSIONS. Assessment & Plan - Diagnosis (1) COPD exacerbation Is this a current diagnosis for this admission?: Yes (2) Congestive heart failure Qualifiers: Congestive heart failure type: unspecified congestive heart failure type Congestive heart failure chronicity: acute on chronic Qualified Code(s ): I50.9 - Heart failure, unspecified Is this a current diagnosis for this admission?: Yes (3) Acute and chronic respiratory failure Qualifiers: Respiratory failure complication: unspecified whether with hypoxia or hypercapnia Qualified Code(s): J96.20 - Acute and chronic respiratory failure, unspecified whether with hypoxia or hypercapnia Is this a current diagnosis for this admission?: Yes (4) Atrial fibrillation Qualifiers: Atrial fibrillation type: paroxysmal Qualified Code(s): I48.0 - Paroxysmal atrial fibrillation Is this a current diagnosis for this admission?: Yes - Notes Notes: Atrial fibrillation: Patient converted to sinus rhythm and is maintaining sinus rhythm this morning. Feel that atrial fibrillation is paroxysmal. Patient does describe history of intermittent palpitations. At this point agree with rate control with Cardizem. Would recommend chronic anticoagulation, ELIQUIS is started but other options exist. Patient definitely does not want chronic Coumadin therapy. Do not see much contraindication to chronic anticoagulation. COPD exacerbation: Patient noted to have COPD. Currently worse. Most likely precipitated by recent respiratory tract infection. Could have been precipitated by atrial fibrillation but could also because of atrial fibrillation. Agree with bronchodilator and antibiotic therapy. Use steroids as needed. Congestive heart failure: Patient has shortness of breath. She has elevated BNP level. Patient has history of chronic shortness of breath. Feel that patient most likely has acute on chronic CHF. CHF etiology most likely secondary to right heart failure but could well be diastolic dysfunction being aggravated by atrial fibrillation and volume overload. At this point recommend diuretic therapy, 2-D echocardiogram, management of COPD with exacerbation. Echocardiogram is pending at the time of dictation. This was ordered. Respiratory failure: Acute on chronic. Patient has home oxygen therapy. Continue with it. - Time Time with patient: 15-25 minutes - CODE STATUS was discussed, patient remains full code. Surrogate decision-maker patient's sister. Multiple medical problems were addressed.More than 50% of the time spent coordinating care, discussing management plans with involved caregivers. Management plans discussed with involved personnels. Medical decision making was of moderate complexity. Medications reviewed and adjusted accordingly: Yes
--- NOTE | 2016-11-30 14:11 | Physician Advisory Note ---
Physician Advisor ProgressNote .: [facility] have [facility] medical record for this patient. Physician Advisor Statement: Nice documentation of accessory muscle use initially, & of Chr Resp Failure requiring O2 at baseline. Possible documentation opportunities if attending agrees: 1. "acute on chronic ___ type CHF" 2. If pt has had any worsening in hypoxemia or hypercapnea this adm to support dx of Ac Resp Failure, please document details. Documenting the amt of O2 she usually uses would be helpful, too. 3. "Acute Hyponatremia, likely due to " As always, if concerned about any unstable VS or abnormal labs, please comment on them & note what doing about them, & please document each day the potential clinical problems you are concerned could occur if pt not kept in hospital for tx at this time. Thanks for your help with documentation accuracy/specificity improvement! Narda Wang MD [facility] Physician Advisor, Fellow of Hospital Medicine
--- NOTE | 2016-11-30 18:54 | XCELERA REPORT ---
[address] [address] Transthoracic Echocardiogram Report Name: PRUDENCE RYAN Age: 76 yrs Gender: Female : 1940 Patient Status: Inpatient Patient Location: [id number]\S\306\S\A Study Date: 11/30/2016 10:27 AM Height: 58 in Weight: 138 lb BSA: 1.6 m2 Procedure: A complete two-dimensional transthoracic echocardiogram was performed (2D, M-mode, spectral and color flow Doppler). The study was technically adequate with some images being suboptimal in quality. Reason For Study: AFIB Ordering Physician: SURESH WEAVER Performed By: Kassie Pedraza Interpretation Summary Left ventricular systolic function is low normal. The Ejection Fraction estimate is 55-60% Doppler measurements suggest pseudonormalized left ventricular relaxation, which is associated with grade II/IV or mild to moderate diastolic dysfunction There is moderate concentric left ventricular hypertrophy. The left ventricle is grossly normal size. Wall motion cannot be accurately commented on, but no definite regional wall motion abnormalities noted. Borderline right ventricular enlargement. The right ventricle appears to be hypertrophied The right ventricular systolic function is normal. The left atrium is moderately dilated. The right atrium is mildly dilated. MV repair with Mitral ring suspected. There is mild mitral stenosis valve area 2cmsq There is a mild to moderate amount of mitral regurgitation There is no aortic valve stenosis No aortic regurgitation is present. There is a mild to moderate amount of tricuspid regurgitation There is servere pulmonary hypertension by echo Right ventricular systolic pressure is estimated to be elevated at >60mmHg. The aortic root is not well visualized but is probably normal size. The inferior vena cava appeared dilated and decreased < 50% with respiration (RAP 15-20 mmHg) There is no pericardial effusion. MMode/2D Measurements \T\ Calculations RVDd: 3.2 cm LVIDd: 4.7 cm FS: 29.3 % Ao root diam: 2.5 cm IVSd: 1.3 cm LVIDs: 3.3 cm EDV(Teich): 100.7 ml LVPWd: 0.90 cm ESV(Teich): 44.1 ml Ao root area: 4.8 cm2 EF(Teich): 56.2 % LA dimension: 4.5 cm Doppler Measurements \T\ Calculations MV E max driss: MV V2 max: MV P1/2t max driss: Ao V2 max: 194.4 cm/sec 224.0 cm/sec 222.0 cm/sec 123.1 cm/sec MV A max driss: MV max PG: MV P1/2t: 117.0 msec Ao max P.8 cm/sec 20.1 mmHg 6.1 mmHg MV E/A: 3.2 MV V2 mean: MVA(P1/2t): 1.9 cm2 92.0 cm/sec MV dec slope: MV mean P.6 cm/sec2 4.8 mmHg MV dec time: 0.27 sec MV V2 VTI: 67.7 cm LV V1 max PG: PA V2 max: TR max driss: 1.9 mmHg 81.9 cm/sec 381.4 cm/sec LV V1 max: PA max PG: TR max P.2 mmHg 69.4 cm/sec 2.7 mmHg Left Ventricle The left ventricle is grossly normal size. There is moderate concentric left ventricular hypertrophy. Left ventricular systolic function is low normal. The Ejection Fraction estimate is 55-60%. Doppler measurements suggest pseudonormalized left ventricular relaxation, which is associated with grade II/IV or mild to moderate diastolic dysfunction. Wall motion cannot be accurately commented on, but no definite regional wall motion abnormalities noted. Right Ventricle Borderline right ventricular enlargement. The right ventricle appears to be hypertrophied. The right ventricular systolic function is normal. Atria The right atrium is mildly dilated. The left atrium is moderately dilated. Interarterial septum not well visualized and not well dopplered. Cannot comment on ASD/PFO presence. Mitral Valve MV repair with Mitral ring suspected. There is mild mitral stenosis. valve area 2cmsq. There is a mild to moderate amount of mitral regurgitation. Aortic Valve The aortic valve is mildly calcified. There is no aortic valve stenosis. No aortic regurgitation is present. Tricuspid Valve The tricuspid valve is not well visualized, but is grossly normal. There is no tricuspid stenosis. There is a mild to moderate amount of tricuspid regurgitation. There is servere pulmonary hypertension by echo. Right ventricular systolic pressure is estimated to be elevated at >60mmHg. Pulmonic Valve The pulmonic valve is not well visualized. Great Vessels The aortic root is not well visualized but is probably normal size. The inferior vena cava appeared dilated and decreased < 50% with respiration (RAP 15-20 mmHg). Effusions There is no pericardial effusion. : SURESH WEAVER > Suresh Weaver
[2016-12-01] MEDS: LEVALBUTEROL HCL NEB 1.25 MG/3 ML AMPUL NEB SCH ×3 (02:54→13:20)
[2016-12-01 03:52] LABS: APPEARANCE,URINE CLEAR; BILIRUBIN,URINE NEGATIVE (NEGATIVE); GLUCOSE, URINE NEGATIVE (NEGATIVE); KETONES,URINE NEGATIVE (NEGATIVE); LEUKOCYTE ESTERASE,URINE TRACE (NEGATIVE); NITRITE,URINE NEGATIVE (NEGATIVE); PROTEIN,URINE NEGATIVE (NEGATIVE); URINE SPECIFIC GRAVITY 1.005; UROBILINOGEN,URINE NEGATIVE mg/dL (<2.0)
[2016-12-01 04:53] LABS: HEMATOCRIT 36.3 % (36.0-47.0); HEMOGLOBIN 11.9 g/dL (12.0-15.5); HGB HCT DIFFERENCE -0.6; MEAN CORPUSCULAR HEMOGLOBIN 27.2 pg (27.0-33.4); MEAN CORPUSCULAR HGB CONC 32.7 g/dL (32.0-36.0); MEAN CORPUSCULAR VOLUME 83 fl (80-97); RED BLOOD COUNT 4.37 10^6/uL (3.72-5.28); RED CELL DISTRIBUTION WIDTH 18.3 % (11.5-14.0); WHITE BLOOD COUNT 10.2 10^3/uL (4.0-10.5)
[2016-12-01 05:14] LABS: ANION GAP 7 (5-19); BLOOD UREA NITROGEN 28 mg/dL (7-20); CALCIUM 8.9 mg/dL (8.4-10.2); CARBON DIOXIDE 28 mmol/L (22-30); CHLORIDE 97 mmol/L (98-107); CREATININE RESULT 1.07 mg/dL (0.52-1.25); GLUCOSE 103 mg/dL (75-110); POTASSIUM 4.2 mmol/L (3.6-5.0); SODIUM 132.1 mmol/L (137-145)
[2016-12-01] MEDS: LANSOPRAZOLE 30 MG TAB.RAP.DR PO SCH (05:50)
[2016-12-01] MEDS: SUCRALFATE 1 GM TABLET PO SCH ×2 (08:27→11:12)
[2016-12-01] MEDS ORDERED: DILTIAZEM HCL 180 MG CAPSULE.CR PO SCH (10:00)
[2016-12-01] MEDS: PREDNISONE 20 MG TABLET PO SCH (11:08)
[2016-12-01] MEDS: FLUTICASONE NASAL SPRAY 50 MCG/SPRY 120 SPRAY/16 GM NASL SCH (11:10)
[2016-12-01] MEDS: METOPROLOL SUCCINATE 50 MG TAB.SR.24H PO SCH (11:11)
[2016-12-01] MEDS: DOCUSATE SODIUM 100 MG CAPSULE PO SCH (11:11)
[2016-12-01] MEDS: BUDESONIDE/FORMOTEROL 160-4.5 MCG 60 PUFF/6 GM MDI IH SCH (11:11)
[2016-12-01] MEDS: APIXABAN 5 MG TABLET PO SCH (11:12)
[2016-12-01] MEDS: ASPIRIN 81 MG TABLET, ENT COATED PO SCH (11:12)
[2016-12-01 12:39] VITALS: BP 152/78
--- NOTE | 2016-12-01 19:32 | PDOC PROGRESS REPORT ---
Subjective Progress Note for:: 12/01/16 Subjective:: Patient seems to be doing better with significant improvement. Patient noted to be ambulating inside the room and doing well. She is wanting to be discharged home. Pt is denying any chest arm or neck discomfort. Patient denying any PND, orthopnea. Patient denied any sustained palpitations, dizziness, syncope, near syncope. Patient denying any fever chills. Patient denying any other significant discomfort. Patient is maintaining sinus rhythm, noted on cardiac monitoring this morning. Frequent APCs however are noted. Review of systems: Rest review of systems negative. Medications: Medications have been reviewed. Physical Exam Vital Signs: Temp Pulse Resp BP Pulse Ox 98.6 F 58 L 16 152/78 H 99 12/01/16 12:37 12/01/16 13:20 12/01/16 13:20 12/01/16 12:37 12/01/16 13:20 Intake & Output 11/30/16 12/01/16 12/02/16 06:59 06:59 06:59 Intake Total 2090 1509 450 Output Total 1500 2425 500 Balance 590 -916 -50 Weight 61.1 kg Exam: GENERAL: well-nourished and in no acute distress. Alert and oriented x3 HEAD: Atraumatic, normocephalic. EYES: Pupils equal round and reactive to light, extraocular movements intact, sclera anicteric, conjunctiva are normal. ENT: TMs normal, nares patent, oropharynx clear without exudates. Moist mucous membranes. No oral ulcerations or bleeding gums noted NECK: supple without lymphadenopathy. Trachea is central. No cervical or axillary lymphadenopathy noted. Carotids are 2+, JVD WNL LUNGS: Respiration seems nonlabored, no significant accessory muscle action noted. Breath sounds clear to auscultation bilaterally and equal. No wheezes rales or rhonchi. No significant dullness noted on percussion. CHEST: Palpation of the chest wall shows no significant chest wall tenderness or abnormalities. HEART: [place] [employer]ENDANT, No PSH, 1/6 KAYCEE aortic area, 1/6 alvarez systolic murmur mitral area, no rubs, no gallops. ABDOMEN: Soft, no significant tenderness appreciated, normoactive bowel sounds. No guarding, no rebound. No rigidity noted . No masses appreciated. EXTREMITIES: Pedal pulses are 1-2+, no calf tenderness noted. No clubbing or cyanosis.trace to 1+ pedal edema noted NEUROLOGICAL: Focused neurological exam showed no significant neurologic deficit. Normal speech, no focal weakness appreciated. PSYCH: Normal mood, normal affect. Judgment and insight within normal limits. SKIN: No significant ecchymosis, rash, ulcerations or signs of pruritus noted. MUSCULOSKELETAL EXAM: No significant joint swelling noted. Results Laboratory Results: 12/01/16 04:22 12/01/16 04:22 12/01/16 12/01/16 12/01/16 03:15 04:22 04:22 WBC 10.2 RBC 4.37 Hgb 11.9 L Hct 36.3 MCV 83 MCH 27.2 MCHC 32.7 RDW 18.3 H Plt Count 185 Sodium 132.1 L Potassium 4.2 Chloride 97 L Carbon Dioxide 28 Anion Gap 7 BUN 28 H Creatinine 1.07 Est GFR ( Amer) > 60 Est GFR (Non-Af Amer) 50 L Glucose 103 Calcium 8.9 Urine Color YELLOW Urine Appearance CLEAR Urine pH 5.0 Ur Specific [place] 1.005 Urine Protein NEGATIVE Urine Glucose (UA) NEGATIVE Urine Ketones NEGATIVE Urine Blood NEGATIVE Urine Nitrite NEGATIVE Ur Leukocyte Esterase TRACE H Urine WBC (Auto) 19 Urine RBC (Auto) 0 11/29/16 17:15 Sputum Gram Stain - Final 11/29/16 17:15 Sputum Sputum Culture - Final Serratia Marcescens Reduced Normal [place] 11/28/16 11/28/16 11/28/16 08:03 08:03 14:40 Creatine Kinase 22 L 30 CK-MB (CK-2) 1.54 Troponin I 0.051 11/28/16 11/28/16 11/28/16 15:45 21:45 21:45 Creatine Kinase < 20 L CK-MB (CK-2) 1.11 1.09 Troponin I 0.038 0.030 Impressions: Chest X-Ray 11/28/16 01:36 IMPRESSION: HEART ENLARGED WITHOUT FAILURE. TRACE BILATERAL PLEURAL EFFUSIONS. Assessment & Plan - Diagnosis (1) COPD exacerbation Is this a current diagnosis for this admission?: Yes (2) Congestive heart failure Qualifiers: Congestive heart failure type: diastolic Congestive heart failure chronicity: acute on chronic Qualified Code(s): I50.33 - Acute on chronic diastolic (congestive) heart failure Is this a current diagnosis for this admission?: Yes (3) Acute and chronic respiratory failure Qualifiers: Respiratory failure complication: unspecified whether with hypoxia or hypercapnia Qualified Code(s): J96.20 - Acute and chronic respiratory failure, unspecified whether with hypoxia or hypercapnia Is this a current diagnosis for this admission?: Yes (4) Atrial fibrillation Qualifiers: Atrial fibrillation type: paroxysmal Qualified Code(s): I48.0 - Paroxysmal atrial fibrillation Is this a current diagnosis for this admission?: Yes - Notes Notes: Atrial fibrillation: Patient converted to sinus rhythm and is maintaining sinus rhythm this morning. Feel that atrial fibrillation is paroxysmal. Patient does describe history of intermittent palpitations. At this point agree with rate control with Cardizem. Would recommend chronic anticoagulation, ELIQUIS is tolerated. Do not see much contraindication to chronic anticoagulation. We will be happy to follow patient for this reason COPD exacerbation: Patient noted to have COPD. Currently worse. Most likely precipitated by recent respiratory tract infection. Could have been precipitated by atrial fibrillation but could also because of atrial fibrillation. Agree with bronchodilator and antibiotic therapy. Use steroids as needed. Congestive heart failure: Patient has shortness of breath. She has elevated BNP level. Patient has history of chronic shortness of breath. Feel that patient most likely has acute on chronic CHF. CHF etiology most likely secondary to right heart failure but could well be diastolic dysfunction being aggravated by atrial fibrillation and volume overload. At this point recommend diuretic therapy, 2-D echo revealed relatively well-preserved LVEF. Patient therefore has predominantly diastolic dysfunction related to CHF. Patient does have RV enlargement and RVH therefore has a element of right-sided heart failure. Respiratory failure: Acute on chronic. Patient has home oxygen therapy. Continue with it. - Time Time with patient: 15-25 minutes - CODE STATUS was discussed, patient remains full code. Surrogate decision-maker unchanged. Multiple medical problems were addressed.More than 50% of the time spent coordinating care, discussing management plans with involved caregivers. Management plans discussed with involved personnels. Medical decision making was of moderate complexity.
--- NOTE | 2016-12-02 07:29 | PDOC DISCHARGE SUMMARY ---
General - Admit/Disc Date/PCP Admission Date/Primary Care Provider: 11/28/16 03:27 ANTONINA WHEELER Consulting industrial psychologist: Dr. Hoyos Discharge Date: 12/01/16 - Discharge Diagnosis (1) Atrial fibrillation with rapid ventricular response Is this a current diagnosis for this admission?: Yes (2) Acute on chronic diastolic (congestive) heart failure Is this a current diagnosis for this admission?: Yes (3) COPD exacerbation Is this a current diagnosis for this admission?: Yes - Additional Information Resuscitation Status: Full Code Discharge Diet: Cardiac Discharge Activity: Activity As Tolerated, Balance Activity w/Rest, Weigh Daily Home Medications: Albuterol Sulfate [Albuterol Sulfate 2.5mg/3 mL] 1 vial NEB Q6 11/28/16 Albuterol Sulfate [Ventolin Hfa] 2 puff IH Q6 PRN 11/28/16 Aspirin [Aspirin EC] 81 mg PO DAILY 11/28/16 Budesonide/Formoterol Fumarate [Symbicort HFA 160-4.5 mcg Inhaler 6 gm] 2 puff IH BID 11/28/16 Cyanocobalamin (Vitamin B-12) [Vitamin B-12] 1 ml IM ASDIR PRN 11/28/16 Furosemide [Lasix 20 mg Tablet] 20 mg PO MOWEFR@1000 11/28/16 Ipratropium [place] 1 packet NEB TID 11/28/16 Omeprazole 20 mg PO DAILY 11/28/16 Ondansetron [Zofran Odt 4 mg Tablet] 4 mg PO Q6HP PRN 11/28/16 Prednisone [Deltasone 20 mg Tablet] 20 mg PO ASDIR PRN 11/28/16 Sucralfate [Carafate 1 gm Tablet] 1 tab PO ACHS 11/28/16 Triamcinolone Acetonide [Aristocort 0.1% Cream] 1 gm TOP DAILY 11/28/16 Apixaban [Eliquis 5 mg Tablet] 5 mg PO BID #60 tablet 12/01/16 Cefuroxime Axetil [Ceftin 500 mg Tablet] 1 tab PO BID #20 tablet 12/01/16 Diltiazem HCl [Cardizem Cd 180 mg Capsule] 180 mg PO DAILY #30 capsule.cr Metoprolol Succinate [Toprol XL 100 mg Tablet] 100 mg PO Q12H #60 tab.sr.24h 08/07 History of Present Illness Patient complains of: Palpitations and shortness of breath History of Present Illness: PRUDENCE RYAN is a 76 year old female with an unclear past medical history as she is a poor historian though states she was recently at [facility] for a heart and lung problem and found to have reduced lung function of 30%, treated with prednisone and antibiotics which she is finished. Records are requested and pending. Over the last 48 hours she's had a productive cough of frothy sputum and frontal sinus congestion with rhinorrhea and postnasal drip. Prompting her to call EMS who finds new A. fib with RVR in the 160s, and has orders for IV Cardizem initiated, she denies chest pain nausea vomiting diaphoresis, she thinks she may have had similar palpitations in the past but are short-lived. Medications recently changed included discontinuation of Coreg and initiation of Lopressor, prednisone taper an unknown antibiotic. Her labs reveal a BNP of 8000, A. fib stabilized at 120 to 130 and referred to the hospitalist for admission. Hospital Course Hospital Course: The patient was noted to be in atrial fibrillation with a rapid ventricular response. The patient was placed on a Cardizem drip. Patient remained on the drip approximately 24 hours then converted to sinus rhythm. The patient was seen and evaluated by cardiology. The patient tolerated the transition to oral antidysrhythmic, long-acting Cardizem, and has remained in sinus rhythm since. Anticoagulation risk and benefits were discussed and the patient was started on Eliquis. This has been tolerated well. Place the patient on scheduled nebs as well as as needed nebulizers and supplemental oxygen. Physical Exam Vital Signs: Temp Pulse Resp BP Pulse Ox 98.6 F 58 L 16 152/78 H 99 12/01/16 12:37 12/01/16 13:20 12/01/16 13:20 12/01/16 12:37 12/01/16 13:20 Intake & Output 11/29/16 11/30/16 12/01/16 23:59 23:59 23:59 Intake Total 2434 1784 1160 Output Total 850 3000 1025 Balance 1104 -1216 135 Weight 62.7 kg 61.1 kg General appearance: PRESENT: no acute distress, cooperative, well-developed, well-nourished Head exam: PRESENT: atraumatic, normocephalic Eye exam: PRESENT: conjunctiva pink, EOMI, PERRLA. ABSENT: scleral icterus Ear exam: PRESENT: normal external ear exam Mouth exam: PRESENT: moist, tongue midline Neck exam: ABSENT: carotid bruit, JVD, lymphadenopathy, thyromegaly Respiratory exam: PRESENT: clear to auscultation [place]. ABSENT: rales, rhonchi, wheezes Cardiovascular exam: PRESENT: RRR. ABSENT: diastolic murmur, rubs, systolic murmur Pulses: PRESENT: normal dorsalis pedis pul Vascular exam: PRESENT: normal capillary refill GI/Abdominal exam: PRESENT: normal bowel sounds, soft. ABSENT: distended, guarding, mass, organolmegaly, rebound, tenderness Rectal exam: PRESENT: deferred Extremities exam: PRESENT: full ROM. ABSENT: calf tenderness, clubbing, pedal edema Neurological exam: PRESENT: alert, awake, oriented to person, oriented to place , oriented to time, oriented to situation, CN II-XII grossly intact. ABSENT: motor sensory deficit Psychiatric exam: PRESENT: appropriate affect, normal mood. ABSENT: homicidal ideation, suicidal ideation Skin exam: PRESENT: dry, intact, warm. ABSENT: cyanosis, rash Results Laboratory Results: 12/01/16 04:22 12/01/16 04:22 12/01/16 12/01/16 12/01/16 03:15 04:22 04:22 WBC 10.2 RBC 4.37 Hgb 11.9 L Hct 36.3 MCV 83 MCH 27.2 MCHC 32.7 RDW 18.3 H Plt Count 185 Sodium 132.1 L Potassium 4.2 Chloride 97 L Carbon Dioxide 28 Anion Gap 7 BUN 28 H Creatinine 1.07 Est GFR ( Amer) > 60 Est GFR (Non-Af Amer) 50 L Glucose 103 Calcium 8.9 Urine Color YELLOW Urine Appearance CLEAR Urine pH 5.0 Ur Specific [place] 1.005 Urine Protein NEGATIVE Urine Glucose (UA) NEGATIVE Urine Ketones NEGATIVE Urine Blood NEGATIVE Urine Nitrite NEGATIVE Ur Leukocyte Esterase TRACE H Urine WBC (Auto) 19 Urine RBC (Auto) 0 11/29/16 17:15 Sputum Gram Stain - Final 11/29/16 17:15 Sputum Sputum Culture - Final Serratia Marcescens Reduced Normal [place] 11/28/16 11/28/16 11/28/16 08:03 08:03 14:40 Creatine Kinase 22 L 30 CK-MB (CK-2) 1.54 Troponin I 0.051 11/28/16 11/28/16 11/28/16 15:45 21:45 21:45 Creatine Kinase < 20 L CK-MB (CK-2) 1.11 1.09 Troponin I 0.038 0.030 Impressions: Chest X-Ray 11/28/16 01:36 IMPRESSION: HEART ENLARGED WITHOUT FAILURE. TRACE BILATERAL PLEURAL EFFUSIONS. Qualifiers PATEINT BEING DISCHARGED WITH ANY OF THE FOLLOWING DIAGNOSIS?: No Plan Time Spent: Less than 30 Minutes
== END 2016-12-01 14:35 | disposition home or self-care (01) | DRG 308 ==
LOC: ER 00:44 → EH 03:27 → UNDOADMIN 03:39 → EH 08:05 → 3W 15:13 → 3N 11-30 05:44
PROVIDERS: ADMIT Internal Medicine; ATTEND Internal Medicine
PROC: 3E0F73Z Introduction of Anti-inflammatory into Respiratory Tract, Via Natural or Artificial Opening (ICD-10-PCS; principal; 2016-11-29)
DX: I48.91 Unspecified atrial fibrillation (principal); I50.33 Acute on chronic diastolic (congestive) heart failure; J44.1 Chronic obstructive pulmonary disease with (acute) exacerbation; I11.0 Hypertensive heart disease with heart failure; E78.5 Hyperlipidemia, unspecified; J44.9 Chronic obstructive pulmonary disease, unspecified; J06.9 Acute upper respiratory infection, unspecified; Z88.6 Allergy status to analgesic agent; Z87.891 Personal history of nicotine dependence; Z88.2 Allergy status to sulfonamides; Z88.1 Allergy status to other antibiotic agents; Z88.8 Allergy status to other drugs, medicaments and biological substances; Z79.02 Long term (current) use of antithrombotics/antiplatelets
CPT/HCPCS: 36415; 71010; 80048; 80053; 80061; 81001; 82272; 82550; 82553; 83735; 83880; 84443; 84484; 85025; 85027; 85610; 87070; 87077; 87086; 87088; 87186; 87205; 93005; 93010; 93306; 94640; 99291; J1650; J3475; J3490; J7512